=== PATIENT | male | born 1980 | race Caucasian/White ===

== ENCOUNTER 2019-06-23 13:38 | Outpatient (CLI) | payer OTHER ==
[2019-06-23 17:45] VITALS: BP 156/99
--- NOTE | 2019-06-23 17:45 | SLEEP CARE CONSULTATION ---
Information from patient questionnaire entered by Enriqueta Marie. I have reviewed and concur with the information entered by Enriqueta Marie. This document represents the service I personally performed and the decisions made by me, Tiki Tran MD, [facility]. History of Present Illness Reason for Visit: New patient, Previously diagnosed sleep apnea, sleep apnea on CPAP therapy Chief Complaint: reports: Frequent awakenings at night, Other (previously diagnosed MICAELA, need new mask/supplies) Duration of Symptoms: since 2013 Usual bedtime: [id number] Time it takes to fall asleep: 10-15 minutes Snores at night: Yes (without CPAP) Observed to quit breathing while asleep: Yes Sleeps alone due to snoring: Yes Number of times waking at night: 6-10 Toss, Turn, or Twitch while sleeping: Yes Recalls having dreams: Yes (every once in a while) Usually gets out of bed at: 0600 Feels refreshed in the morning: No Morning headache: Yes Sleepy or fatigued during the day: Yes Ever fallen asleep while driving: Yes Takes day naps: No Dreams during day naps: No Prior sleep studies: Yes Year and Where: [facility] Additional HPI information: I had the pleasure of seeing Mr. Ngo today regarding obstructive sleep apnea-hypopnea. As you know, he is a 39 year old gentleman who was diagnosed with the sleep-disordered breathing in [place], [place] in 2014. The AHI was 51.5 (mentioned in a progress note). He was prescribed a CPAP device set at 10 cmH2 O. He uses every night and all night. The compliance data show usage in 175 out of the past 180 nights, averaging 7 hours a night. The residual AHI is 1.6 and average time in large leak per day is 19 seconds. He wears a [employer] Eson nasal mask. He got his supplies from [employer] in [place]. He finds the treatment very beneficial especially with the headache. CPAP Compliance Data - Data Reviewed with Patient Average duration of nightly device use: 7h 5m Compliance rate %: 91.7 Current pressure setting (cmH2O): 10 Humidity settin Heated hose settin Average residual AHI: 1.6 Average large leak: 19s Subjective Initial [place]ou[place] Sleepiness Scale score: 7 Past Medical History Past Medical History: reports: Other (Sleep Apnea,allergies) Social History The patient's occupation is active . Patient is and lives in [place]. Have you smoked in the past 12 months: Yes Cigarettes per day (20/pack): 10 Years of smokin Smoking Pack Years: 4.0 Alcohol use: Yes Alcohol amount and frequency: few drinks/weekly Caffeine use: Yes Caffeine amount and frequency: 1-2 per day Family History Family history of sleep disordered breathing: Yes Family Hx Sleep Apnea: Father: Sleep apnea - Untreated Allergies and Home Medications Drug allergies reviewed: Yes Home medication list reviewed: Yes Review of Systems Cardiovascular: denies: high blood pressure, palpitations, chest pain, irregular heart rate or pulse, leg or foot swelling, have to sleep sitting up, other Respiratory: denies: shortness of breath, wheeze, sputum production, chronic cough, other Gastrointestinal: reports: nausea (with migraine), vomitting (with migraine) Urinary: denies: incontinence, frequency, urgency, impotence, other Neurological: reports: headaches Psychiatric: denies: Attention Deficit Hyperactivity, anxiety, depression, mood disorder, claustrophobia, other Ear/Nose/Throat: reports: nasal congestion, sinus problems, dry mouth/throat, wisdom teeth removed Endocrine: reports: sluggishness Musculoskeletal: denies: joint pain, neck pain, back pain, joint swelling, muscle pain or cramping, mobility problems, other Immunologic: reports: sneezing, allergies to food or environment Physical Exam Vital signs obtained and entered by: Dr. Tran Blood Pressure: 156/99 Cuff size: regular Heart Rate: 78 O2 Saturation: 95 Height: 5 ft 9 in Weight: 205 lb Body Mass Index: 30.2 BMI Classification: Obesity Class 1 Neck circumference: 17 Mood/affect: normal HEENT: No craniofacial malformation Nostrils: patent to airflow Turbinates: normal Septum: deviated right Mouth and throat: narrow oropharynx Soft palate: long Hard palate: normal Uvula: normal Uvula visualization: 50% Mallampati Class II Tongue: normal in size Tonsils: small Chin and jaw: normal size and position Neck: normal w/o lymphadenopathy or thyromegaly Heart: regular rate and rhythm Lungs: clear bilaterally Abdomen: soft, non-tender Extremities: no edema or clubbing Neurologic: intact, no focal deficits Impression and Plan IMPRESSION: 1. Obstructive Sleep Apnea-Hypopnea Syndrome, severe, as previously diagnosed. The patient has had good treatment compliance. The current pressure setting appears effective and comfortable. The patient experiences improvement on the treatment. suggested by history of Narrow oropharynx and obesity are common predisposing factors for obstructive sleep apnea-hypopnea syndrome. Pathophysiology of sleep-disordered breathing was discussed. I will prescribe him new supplies. Plan: 1. Prescription made for CPAP supplies. 2. Try Respironics DreamWear nasal cushion mask and ResMed N30i mask. 3. Avoid alcohol, sedative and muscle relaxant around bedtime. 4. Attempt to lose weight. 5. Return for follow up in a year or earlier if there is any problem. I spent 100% of this 20 minute visit face to face with the patient with greater than 50% of this was spent time counseling the patient and coordination of care.
== END 2019-06-23 13:39 | disposition home or self-care (01) ==
LOC: SC 13:38
PROVIDERS: ATTEND Internal Medicine Pulmonary Disease
DX: G47.33 Obstructive sleep apnea (adult) (pediatric) (principal); F17.210 Nicotine dependence, cigarettes, uncomplicated; E66.9 Obesity, unspecified; Z68.30 Body mass index [BMI] 30.0-30.9, adult
CPT/HCPCS: 99203; 99212

== ENCOUNTER 2021-05-18 13:48 | Outpatient (CLI) | payer OTHER ==
[2021-05-18 14:38] VITALS: BP 122/81
--- NOTE | 2021-05-18 14:38 | SLEEP CARE CONSULTATION ---
Information from patient questionnaire entered by Enriqueta Marie. I have reviewed and concur with the information entered by Enriqueta Marie. This document represents the service I personally performed and the decisions made by , Keyla Guzman ARNP. History of Present Illness Service Date and Time: 05/18/2021 1348 Previous diagnosis: Severe, Obstructive Sleep Apnea-Hypopnea Syndrome AHI: 51.5 Reason for follow up: annual Equipment type: CPAP Equipment obtained from: [employer] (getting supplies as needed) Mask style: Nasal pillows Backup mask available: No (will keep old mask when replaced) Last cushion change: last week Prior sleep studies: Yes Year and Where: 2014 [facility] [place] Type of Sleep Study: Polysomnography HPI additional information: CELESTINA GÓMEZ was diagnosed to have severe, AHI 51.5, obstructive sleep apnea- hypopnea syndrome and returned today for CPAP therapy annual follow-up. Sleep Study - Results Type of Sleep Study: Polysomnography Prior sleep studies: Yes Year and Where: 2014 [facility] [place] CPAP Compliance Data - Data Reviewed with Patient Average duration of nightly device use: 7 hours 44 minutes Compliance rate %: 88.3 Current pressure setting (cmH2O): 10.0 Humidity settin Heated hose settin Average residual AHI: 1.3 Central apnea: 0.2 Obstructive apnea: 0.6 Average large leak: 9 seconds Subjective Missed days of use due to: reports: travel Patient concerns: reports: mask discomfort (moves on face and wakes him up), mask leak noise, nasal congestion (has allergies), other (mask comes off occasionally). denies: aerophagia, air blowing in eyes, condensation in mask/hose, dry mouth, nose, throat, epistaxis Observed to snore while using device: No Current pressure setting perceived as: comfortable On therapy, patient: reports: sleeping better, awakening more refreshed, being more awake and alert during the day, more rested overall. denies: drowsiness while driving Initial [place] Sleepiness Scale score: 7 Current [place] Sleepiness Scale score: 11 Allergies and Home Medications Home medication list reviewed: Yes (no changes) Review of Systems Review of systems same as previous: Yes (no changes) Physical Exam Blood Pressure: 122/81 Cuff size: wrist Heart Rate: 80 O2 Saturation: 98 Height: 5 ft 9 in Weight: 193 lb Body Mass Index: 28.5 BMI Classification: Overweight Impression and Plan 1. Obstructive Sleep Apnea-Hypopnea Syndrome, severe, with good treatment compliance and good apnea control. On CPAP therapy, the patient has better sleep quality and is more rested overall. Patient has difficulties keeping his nasal pillows mask on his face. It is moving and waking him up several times a night. He would like to try a different mask. He used to use a nasal "over the nose" mask that he really liked but the hose came out the front and this bothered him. I advised him that he could try a Dreamwear Wisp mask which goes over the nose but the hose is at the top of the head. He has also had some issues with skin irritation where the tubing touches his cheeks. I advised him to try a cloth barrier over the tubing to protect his skin and gave him a brochure for [employer] with options. Patient has a Dreamstation which is on the recall by [employer]. Patient has already registered their device for the recall. Patient denies any black particles seen in machine or hoses, any unusual odors coming from device. Patient has not experienced any physical symptoms such as upper airway irritation, headache, skin or eye irritation, asthma, nausea/vomiting, difficulty breathing or chest pain. If patient is not able to sleep due to waking up choking, gasping for air or other respiratory distress that they may decide to continue using it until it is either replaced or repaired. Since the patients current machine is at least 5 years old the patient is opting to update their device with a device that is not on the recall. Compliance guidelines for new device and follow up discussed. Patient is about to deploy next month. I will write for a new device with an urgent setup so he may get it before he leaves the area and we can follow up with a Telehealth visit. Patient has a SoClean device but has not been using it since he was deployed to [facility] and not able to take it with him. I advised him not to use the diamond cleaner with his device as recommended by [employer] and the FDA. Patient voiced understanding and agreement with plan. Patient's apnea severity and rationale for treatment to reduce apnea, improve sleep quality and reduce cardiovascular and cerebrovascular events was reviewed. Patient was encouraged to try to maintain a healthy weight for his overall health and to reduce apneas. * Continue auto CPAP pressure at 10 cmH2O * Update device * Try a Dreamwear Wisp mask * Update supplies as needed * Notify me if snoring with mask or feeling that the pressure is too much or too little * Attempt to lose weight * Call this office if any problems using CPAP * Return for follow up in 1 year, or sooner if concerns arise Counseling Topics: Spare mask, Weight loss health impact Visit Type: In Office Time Spent with Patient (minutes): 29 Provider Statement: I spent 100% of the Face to Face Visit with the patient with greater than 50% spent counseling the patient and coordination of care.
== END 2021-05-18 13:49 | disposition home or self-care (01) ==
LOC: SC 13:48
PROVIDERS: ATTEND Nurse Practitioner Family
DX: G47.33 Obstructive sleep apnea (adult) (pediatric) (principal); E66.3 Overweight; Z68.28 Body mass index [BMI] 28.0-28.9, adult
CPT/HCPCS: 99212; 99213